=== PATIENT | male | born 1965 | race Caucasian/White ===

== ENCOUNTER 2021-05-17 10:55 | Emergency (ER) | payer OTHER ==
[~2021-05-17] VITALS: Ht 170.2 cm; Wt 81.6 kg
--- NOTE | 2021-05-17 11:03 | NUR ---
called to triage, no answer
--- NOTE | 2021-05-17 11:15 | NUR ---
Patient came in to the er c/o left sided rib pain. On room air, breathign evenly and unlabored. Kept comfortable, will continue to monitor accordingly.
[2021-05-17 11:59] LABS: BASOPHILS % (AUTO) 0.5 % (0.0-2.0); HEMATOCRIT 43 % (39-51); LYMPHOCYTES # (AUTO) 0.7 K/uL (0.8-4.8); MEAN CORPUSCULAR HGB CONC 35 g/dl (31.0-36.0); MEAN CORPUSCULAR VOLUME 91 fL (80-96); MONOCYTES # (AUTO) 0.3 K/uL (0.1-1.30); MONOCYTES % (AUTO) 8.8 % (2.0-12.0); NEUTROPHILS # (AUTO) 2.5 K/uL (1.8-8.9); NEUTROPHILS % (AUTO) 68.7 % (43.0-81.0); PLATELET COUNT (AUTO) 160 K/uL (150-450); RED BLOOD CELL COUNT(AUTO) 4.76 MIL/uL (4.5-6.0); WHITE BLOOD COUNT (AUTO) 3.6 K/uL (4.3-11.0)
[2021-05-17 12:16] LABS: BILIRUBIN,DIRECT 0.2 mg/dL (0.0-0.2); CALCIUM, SERUM 9.1 mg/dL (8.5-10.1); CREATININE 0.7 mg/dL (0.6-1.3); POTASSIUM 4.1 mmol/L (3.5-5.1); TOTAL PROTEIN, SERUM 7.4 g/dL (6.4-8.2)
[2021-05-17] MEDS ORDERED: IV NS 0.9% 250 ML IV ONE (12:33)
[2021-05-17] MEDS ORDERED: IOHEXOL-300 100 ML VIAL IV ONE (12:33)
--- NOTE | 2021-05-17 12:34 | NUR ---
PT TO RADIOLOGY FOR ABDOMINAL/PELVIC CT SCAN VIA [facility].
[2021-05-17] MEDS ORDERED: NAPR-1009 PO (13:54)
--- NOTE | 2021-05-17 14:23 | NUR ---
Patient discharged to home in stable condition. Written and verbal after care instructions given. Patient verbalizes understanding of instruction.IV removed. Catheter intact and site benign. Pressure and 4x4 applied to site. No bleeding noted.
[2021-05-17 14:24] VITALS: BP 132/87
== END 2021-05-17 14:24 | disposition home or self-care (01) ==
LOC: ER 10:55
DX: R10.12 Left upper quadrant pain (principal); R73.9 Hyperglycemia, unspecified; R74.02 Elevation of levels of lactic acid dehydrogenase [LDH]; Z79.899 Other long term (current) drug therapy; V19.9XXA Pedal cyclist (driver) (passenger) injured in unspecified traffic accident, initial encounter; Y93.89 Activity, other specified; Y92.89 Other specified places as the place of occurrence of the external cause; Y99.8 Other external cause status
CPT/HCPCS: 36415; 71045; 74177; 80048; 80076; 85025; 86850; 99285; J7050; Q9967

== ENCOUNTER 2022-02-09 15:18 | Emergency (ER) | payer OTHER ==
[~2022-02-09] VITALS: Ht 170.2 cm; Wt 83.9 kg
[~2022-02-09 15:18] MED LIST: NAPR-1009 PO
[2022-02-09 15:23] VITALS: BP 130/89
--- NOTE | 2022-02-09 15:30 | NUR ---
BIBS THIS 56YO MALE PATIENT, AMBULATORY, ALERT, ORIENTED X4. COMPLAINING OFSWELLING ON THE RIGHT LOWER QUADRANT WITH PAIN RADIATING AT BACK X 1 WEEK. NOW PAIN SCALE IS 0/10. PLACED IN BED 12, VITALS CHECKED.
--- NOTE | 2022-02-09 15:40 | NUR ---
SEEN BY DR DHALIWAL AT BEDSIDE
--- NOTE | 2022-02-09 15:49 | NUR ---
URINE SPECIMEN SENT TO LAB
--- NOTE | 2022-02-09 16:24 | NUR ---
PATIENT BROUGHT TO RADIOLOGY DEPT FOR CT SCAN OF ABDOMEN.
[2022-02-09 16:47] LABS: BILIRUBIN,URINE NEGATIVE (NEGATIVE); COLOR,URINE YELLOW (YELLOW); LEUKOCYTE ESTERASE ,URINE NEGATIVE (NEGATIVE); NITRITE, URINE NEGATIVE (NEGATIVE); PROTEIN,URINE NEGATIVE (NEGATIVE); UGLUCOSE >=1000 mg/dL (NEGATIVE); UROBILINOGEN,URINE 0.2 EU/dL (0.2)
[2022-02-09 17:03] LABS: BACTERIA,URINE None seen /HPF (None Seen); RBC,URINE 0-2 /HPF (0-2); SQUAMOUS EPITHELIAL CELL,UR 0-2 /HPF (None Seen); WBC,URINE 0-2 /HPF (0-3)
[2022-02-09 17:04] LABS: MUCUS,URINE Few /LPF (None Seen)
== END 2022-02-09 17:46 | disposition home or self-care (01) ==
LOC: ER 15:19
DX: Q79.59 Other congenital malformations of abdominal wall (principal); R10.9 Unspecified abdominal pain; Z79.1 Long term (current) use of non-steroidal anti-inflammatories (NSAID)
CPT/HCPCS: 81001